=== PATIENT | male | born 1955 | race Caucasian/White ===

== ENCOUNTER 2017-05-17 18:16 | Emergency (ER) | payer MEDICAID ==
[~2017-05-17] VITALS: Ht 167.6 cm; Wt 79.0 kg
[2017-05-17] MEDS ORDERED: IBUPROFEN 600 MG TABLET PO ONE (20:00)
[2017-05-17] MEDS ORDERED: HYDROCODONE/ACETAMINOPHEN 5-325 MG TABLET PO ONE (20:00)
[2017-05-17 21:45] VITALS: BP 127/78
== END 2017-05-17 22:30 | disposition home or self-care (01) ==
LOC: EDBD 18:23 → EMS 18:23
DX: M17.12 Unilateral primary osteoarthritis, left knee (principal); M25.562 Pain in left knee
CPT/HCPCS: 29505; 99284

== ENCOUNTER → 2018-09-16 | Emergency (ER) | payer MEDICAID ==
[~2018-09-16] VITALS: Ht 167.6 cm; Wt 83.6 kg
[~2018-09-16] MED LIST: FLUORESCEIN SODIUM 1 MG STRIP OS ONE; KETOROLAC TROMETHAMINE 10 MG TABLET PO ONE; PROPARACAINE HCL 0.5% 15 ML OPHTHALMIC SOLUTION OS ONE
[2018-09-16 17:11] VITALS: BP 135/82
== END | disposition home or self-care (01) ==
LOC: EMS 10:48
DX: S05.42XA Penetrating wound of orbit with or without foreign body, left eye, initial encounter (principal); H11.32 Conjunctival hemorrhage, left eye; H53.412 Scotoma involving central area, left eye; W20.8XXA Other cause of strike by thrown, projected or falling object, initial encounter; Y93.89 Activity, other specified; Y92.89 Other specified places as the place of occurrence of the external cause; Y99.8 Other external cause status
CPT/HCPCS: 70450; 70486; 72125

== ENCOUNTER 2018-09-20 14:32 | Emergency (ER) | payer MEDICAID ==
[~2018-09-20] VITALS: Ht 167.6 cm; Wt 82.7 kg
[2018-09-20] MEDS ORDERED: FLUORESCEIN SODIUM 1 MG STRIP OU ONE (14:45)
[2018-09-20] MEDS ORDERED: PROPARACAINE HCL 0.5% 15 ML OPHTHALMIC SOLUTION OU ONE (14:45)
[2018-09-20 16:19] VITALS: BP 121/76
== END 2018-09-20 16:32 | disposition home or self-care (01) ==
LOC: EMS 14:33
DX: S05.11XA Contusion of eyeball and orbital tissues, right eye, initial encounter (principal); L02.01 Cutaneous abscess of face; X58.XXXA Exposure to other specified factors, initial encounter; Y93.89 Activity, other specified; Y92.89 Other specified places as the place of occurrence of the external cause; Y99.8 Other external cause status